=== PATIENT | female | born 1995 | race Caucasian/White ===

== ENCOUNTER 2017-04-30 03:55 | Emergency (ER) | payer MEDICAID, MEDICARE ==
[~2017-04-30] VITALS: Ht 170.2 cm; Wt 69.0 kg
[2017-04-30 04:16] VITALS: BP 108/50
== END 2017-04-30 05:00 | disposition left against medical advice (07) ==
LOC: ER 03:55
DX: O26.892 Other specified pregnancy related conditions, second trimester (principal); R10.2 Pelvic and perineal pain; Z3A.23 23 weeks gestation of pregnancy; Z53.21 Procedure and treatment not carried out due to patient leaving prior to being seen by health care provider